=== PATIENT | male | born 1970 | race Caucasian/White ===

== ENCOUNTER 2016-12-28 14:49 | Emergency (ER) | payer MEDICAID | END 2016-12-28 17:40 | disposition home or self-care (01) | LOC: D.ER 14:49 | DX: K08.89 Other specified disorders of teeth and supporting structures (principal); S03.2XXA Dislocation of tooth, initial encounter; X58.XXXA Exposure to other specified factors, initial encounter; Y93.89 Activity, other specified; Y92.89 Other specified places as the place of occurrence of the external cause; R51 Headache; F17.200 Nicotine dependence, unspecified, uncomplicated ==

== ENCOUNTER 2017-01-03 15:57 | Emergency (ER) | payer MEDICAID | END 2017-01-03 18:38 | disposition home or self-care (01) | LOC: D.ER 15:57 | DX: S00.83XA Contusion of other part of head, initial encounter (principal); W22.8XXA Striking against or struck by other objects, initial encounter; K02.9 Dental caries, unspecified ==

== ENCOUNTER 2017-09-17 21:40 | Inpatient (IN) | payer MEDICAID ==
[~2017-09-17] VITALS: Ht 177.8 cm; Wt 77.1 kg
--- NOTE | ~2017-09-17 | HEMODYNAMI ---
PATIENT:ADILIA LUCERO MEDICAL RECORD: [id number] : 66 LOCATION:DVictorinaAZ D.2226 ADMISSION DATE: 09/18/17 Generatedon:09/20/201712:23 Patient name: ADILIA LUCERO Patient #: [id number] SSN: : 1970 Date of study: 09/20/2017 Page: Of Hemodynamic Procedure Report Patient Data Patient Demographics Procedure consent was obtained First Name: ADILIA Gender: Male Last Name: JAZMINE : 1970 Middle Initial: P Age: 47 year(s) Patient #: [id number] Race: Unknown Additional ID: [id number] Contact details Address: [address] [place] [address] State: [place] City: [place] Zip code: [address] Past Medical History Allergies Allergen Reaction Date Comments Reported Penicillins 09/20/2017 Admission Admission Data Admission Date: 09/18/2017 Admission Time: 1:02 Admit Source: Other Room #: D.2226 Lab Results Lab Result Date: 09/20/2017 Lab Result Time: 0:00 Biochemistry Name Units Result Min Max BUN mg/dl 34 --(----)-* 7 18 Creatinine mg/dl 1.5 --(----)-* 0.6 1.3 CBC Name Units Result Min Max Hemoglobin g/dl 14.4 --(*---)-- 13.5 17.5 Procedure Procedure Types Cath Procedure Diagnostic Procedure LHC LHC w/Coronaries Procedure Description Procedure Date Procedure Date: 09/20/2017 Procedure Start Time: 12:09 Procedure End Time: 12:21 Procedure Staff Name Function Dustin Frey MD Performing Physician Babita Padgett RT Monitor Timmy Tang RT Scrub Rivera Banks RN Nurse Procedure Data Cath Procedure Fluoroscopy Diagnostic fluoroscopy Total fluoroscopy Time: 2.6 time: 2.6 min min Diagnostic fluoroscopy Total fluoroscopy dose: 571 dose: 571 mGy mGy Contrast Material Contrast Material Type Amount (ml) Isovue 300 77 Entry Location Entry Primary Successful Side Size Upsize Upsize Entry Closure Succes sful Closure Location (Fr) 1 (Fr) 2 (Fr) Remarks Device Remarks Femoral Right 5 Fr Exoseal artery Estimated blood loss: 5 ml Diagnostic catheters Device Type Used For End Catheter Placement MULTIPACK JL 4.0 5Fr Procedure catheter MULTIPACK 3DRC 5Fr Procedure catheter MULTIPACK Pigtail 5 Fr Procedure catheter Procedure Complications No complications Procedure Medications Medication Administration Route Dosage 0.9% NaCl I.V. 100 ml/hr Oxygen etCO2 Nasal cannula 2 l/min Heparin Flush Bag added to field 2 bags (1000units/500ml NS) Lidocaine 2% added to field 20 Versed I.V. 2 mg Fentanyl I.V. 100 mcg Versed I.V. 1 mg Hemodynamics Rest HGB: 14.4 (g/dl) Heart Rate: 94 (bpm) Pressure Samples Time Site Value (mmHg) Purpose Heart Use Rate(bpm) 12:16 LV 124/11,16 Snapshot 98 12:17 AO 133/81(102) Pullback 98 12:17 LV 139/3,21 Pullback 98 Gradients Valve Time Site 1 Site 2 Mean SEP/DFP Peak To Heart Use (mmHg) (sec/min) Peak Rate (mmHg) (bpm) Aortic 12:17 LV AO 6 98 139/3,21 133/81(102) Calculations Valve P-P Mean Valve Index Valve Source Name Gradient Area Flow (cm2) Aortic 6 6 Snapshots Pre Cath Intra NCS Post Cath Vital Signs Time Heart Resp SPO2 etCO2 NIBP (mmHg) Rhythm Pain Sedation Rate (ipm) (%) (mmHg) Status Level (bpm) 12:03:09 97 34 93 14.9 137/100(118) NSR 0 (11) 10(A) , No pain 12:07:45 97 30 93 15.7 137/105(119) NSR 0 (11) 10(A) , No pain 12:12:20 96 31 92 12.7 133/96(111) NSR 0 (11) 9(A) , No pain 12:16:56 108 17 93 20.2 130/85(105) NSR 0 (11) 9(A) , No pain 12:21:31 97 23 92 32.2 139/87(107) NSR 0 (11) 9(A) , No pain Medications Time Medication Route Dose Verified Delivered Reason Notes Eff ectiveness by by 12:05:37 0.9% NaCl I.V. 100 Rivera Rivera Per ml/hr Darren Banks physician RN RN 12:05:46 Oxygen etCO2 2 Rivera Rivera Per Nasal l/min Darren Banks physician cannula RN RN 12:05:57 Heparin Flush added 2 Rivera Rivera used for Bag to bags Darren Banks procedure (1000units/500ml field RN RN NS) 12:06:17 Lidocaine 2% added 20ml Rivera Rivera for local to vial Lorigan Lorigan anesthetic field RN RN 12:06:30 Versed I.V. 2 mg Rivera Rivera for Lorigan Lorigan sedation RN RN 12:06:39 Fentanyl I.V. 100 Rivera Rivera for mcg Lorigan Lorigan sedation RN RN 12:11:58 Versed I.V. 1 mg Rivera Rivera for Lorigan Lorigan sedation RN labor arbitrator Log Time Note 11:39:12 Informed consent obtained and on chart 11:39:15 Admit Source: Other 11:39:30 Diagnostic Cath status Elective 11:39:32 Rivera Banks RN sent for patient. Start room use. 11:39:33 Time tracking: Regular hours (M-F 7:00 - 5:00) 11:39:39 Plan of Care:Hemodynamics will remain stable., Cardiac rhythm will remain stable., Comfort level will be maintained., Respiratory function will remain adequate., Patient/ family verbilizes understanding of procedure., Procedure tolerated without complication., Recovers from procedure without complications.. 11:41:23 H&P Date Dictated: 09/18/2017 Within 30 days and on chart.. 11:49:56 Patient received from Med II to CCL 1 Alert and oriented. Tansferred to table in Supine position. 11:49:57 Warm blankets applied, and jim hugger turned on for patient comfort. 11:49:58 Correct patient and procedure confirmed by team. 11:50:03 ECG and BP/O2 sat monitors applied to patient. 11:50:04 Pre-procedure instructions explained to patient. 11:50:05 Pre-op teaching completed and patient verbalized understanding. 12:02:23 Vital chart was started 12:02:29 Baseline sample Acquired. 12:02:32 Rhythm: sinus rhythm 12:02:33 Full Disclosure recording started 12:02:36 Family in patients room. 12:02:37 Patient NPO since Midnight. 12:02:46 Patient allergic to Penicillins 12:02:49 Is the patient allergic to Iodine/contrast media? No. 12:02:50 Is patient on blood thinner?Yes 12:02:53 ACC The patient was administered the following blood thiners within the last 24 hours: ACCLovenox 12:02:55 Patient diabetic? No. 12:02:58 Previous problem with sedation/anesthesia? No ? 12:02:58 Snore? Yes 12:03:00 Sleep apnea? No 12:03:01 Deviated septum? No 12:03:02 Opens mouth fully? Yes 12:03:03 Sticks out tongue? Yes 12:03:06 Airway obstruction? No ? 12:03:10 Dentures? No ? 12:03:15 Pre procedure: right dorsailis pedis pulse 2+ Normal; easily identifiable; not easily obliterated 12:03:21 IV patent on arrival in right forearm with 0.9% NaCl at [facility]. 12:03:53 Lab Result : BUN 34 mg/dl 12:03:53 Lab Result : Creatinine 1.5 mg/dl 12:03:53 Lab Result : Hemoglobin 14.4 g/dl 12:04:17 Lab results completed and on chart. 12:04:20 Right groin area was prepped with chlora-prep and draped in sterile fashion 12:04:21 Alarms reviewed by R. N. 12:04:21 Sharps counted by scrub and verified by R.N. 12:04:22 --------ALL STOP TIME OUT------ 12:04:23 Final Timeout: patient, procedure, and site verified with staff and physician. All members of the team are in agreement. 12:04:25 Right groin site verified by team. 12:04:28 Physical assessment completed. ASA score P 2 - A patient with mild systemic disease as per Dustin Frey MD. 12:04:32 Sedation plan: IV Moderate Sedation Medication:Versed, Fentanyl 12:04:48 Use device set Femoral Dx 12:04:50 ACIST Syringe (78637) opened to sterile field. 12:04:51 Bag Decanter (2002S) opened to sterile field. 12:04:52 ACIST Hand Control (67416) opened to sterile field. 12:04:53 ACIST Manifold (15835) opened to sterile field. 12:04:54 Tegaderm 4 x 4 (1626W) opened to sterile field. 12:04:56 Medline Cath Pack ([id number]) opened to sterile field. 12:04:57 DIAGNOSTIC WIRE .035 260cm J wire (652158) opened to sterile field. 12:04:59 DIAGNOSTIC Multipack 5Fr catheter set ([id number]) opened to sterile field. 12:05:37 0.9% NaCl 100 ml/hr I.V. was administered by Rivera Banks RN; Per physician; 12:05:46 Oxygen 2 l/min etCO2 Nasal cannula was administered by Rivera Banks RN; Per physician; 12:05:57 Heparin Flush Bag (1000units/500ml NS) 2 bags added to field was administered by Rivera Banks RN; used for procedure; 12:06:17 Lidocaine 2% 20ml vial added to field was administered by Rivera Banks RN; for local anesthetic; 12:06:30 Versed 2 mg I.V. was administered by Rivera Banks RN; for sedation; 12:06:39 Fentanyl 100 mcg I.V. was administered by Rivera Banks RN; for sedation; 12:07:56 Zero performed for pressure channel P1 12:08:03 Procedure started. 12:09:29 Local anesthetic to right femoral artery with Lidocaine 2% by Dustin Frey MD.INITIAL ACCESS ONLY 12:09:35 SHEATH Prelude 5Fr 0.035 (MFI-4P-03-035) opened to sterile field. 12:09:43 A 5 Fr sheath was inserted into the Right Femoral artery 12:10:18 A MULTIPACK JL 4.0 5Fr catheter was advanced over the wire and used for Procedure. 12:11:08 LCA angiography performed. 12:11:54 Catheter exchanged over wire. 12:11:58 Versed 1 mg I.V. was administered by Rivera Banks RN; for sedation; 12:12:46 A MULTIPACK 3DRC 5Fr catheter was advanced over the wire and used for Procedure. 12:14:06 RCA angiography performed. 12:14:17 Catheter exchanged over wire. 12:15:04 A MULTIPACK Pigtail 5 Fr catheter was advanced over the wire and used for Procedure. 12:15:10 Injector settings: Ml/sec: 10, Volume: 20, 12:15:12 LV gram done using PRASAD 12:16:23 LV hemodynamics recorded. 12:17:16 EF : 15 % 12:17:27 Catheter removed. 12:17:30 EXOSEAL 5Fr (EX500) opened to sterile field. 12:18:28 Sheath removed intact; hemostasis achieved with Exoseal to the Right Femoral artery. 12:19:06 Procedure ended.(Physican Out) 12:19:24 Fluoroscopy time 02.60 minutes. 12:19:28 Fluoroscopy dose: 571 mGy 12:19:28 Flurop Dose total: 571 12:19:36 Contrast amount:Isovue 300 77ml. 12:19:41 Post-op/insertion site Right Femoral artery dressed using a 4 x 4 and Tegaderm. 12:19:44 Post right femoral artery:stable, soft, clean and dry 12:19:47 Post procedure: right dorsailis pedis pulse 2+ Normal; easily identifiable; not easily obliterated. 12:19:50 Post-procedure physical assessment completed. ASA score P 2 - A patient with mild systemic disease as per Dustin Frey MD. 12:19:54 Post procedure rhythm: unchanged. 12:19:56 Estimated blood loss: 5 ml 12:19:58 Post procedure instruction explained to patient.Patient verbalizes understanding. 12:19:58 Patient needs reinforcement of post procedure teaching. 12:20:55 Procedure and supply charges have been captured, reviewed, submitted and are correct. 12:20:57 Procedure Complication : No complications 12:20:59 Vital chart was stopped 12:20:59 See physician's report for complete and final results. 12:21:01 Report given to Med/Surg. 12:21:09 Patient transfered to Med/Surg with Bed. 12:21:11 Procedure ended. 12:21:11 Full Disclosure recording stopped 12:21:17 End room use (Document Last) Device Usage Item Name Manufacture Quantity Catalog Number Hospital Part Current M inimal Lot# / Charge Number Stock Stock Serial# Code ACIST Syringe Acist 1 81928 403965 [id number] [id number] 2 0 (00885) CastTV Bag Decanter Microtek 1 2001 420352 53883 465101 5 (2002S) Medical Inc. ACIST Hand Acist 1 30862 119617 502417 289723 5 Control (45650) Medical Systems Inc ACIST Manifold Acist 1 82250 386421 898772 524549 5 (71034) Medical Systems Inc Tegaderm 4 x 4 3M 1 1626W 436451 131032 600563 5 (1626W) Medline Cath Cardinal 1 [id number] 837230 19828 447346 5 NEBOTRADE Health ([id number]) DIAGNOSTIC WIRE [facility] 1 362049 916702 283765 236766 3 0 .035 260cm J wire (899372) DIAGNOSTIC Cardinal 1 [id number] 286063 62149 763850 3 0 Multipack 5Fr Health catheter set ([id number]) SHEATH Prelude Merit 1 [id number] 720949 671169 781816 5 5Fr 0.035 Medical (GML-0Y-28-035) MULTIPACK JL Cardinal 1 [id number] 5 4.0 5Fr Health catheter MULTIPACK 3DRC Cardinal 1 [id number] 5 5Fr catheter Health MULTIPACK Cardinal 1 [id number] 5 Pigtail 5 Fr Health catheter EXOSEAL 5Fr Cardinal 1 EX500 309806 451056 042738 1 0 (EX500) Health Signature Audit [place] Stage Time Signature Unsigned Intra-Procedure 09/20/2017 Babita Padgett 12:23:39 PM RT(R) Signatures Monitor : Babita Padgett Signature : RT Date : Time : [facility] [address] [place] [address]
[2017-09-17 22:21] LABS: BASOPHILS 0.1 % (0-2); EOSINOPHILS 2.1 % (0-7); HEMATOCRIT 42.5 % (42.0-54.0); HEMOGLOBIN 14.7 g/dL (13.5-17.5); IMMATURE GRANULOCYTES 0.2 % (0-5); LYMPHOCYTES 21.9 % (15-50); MCH 32.7 pg (26.0-34.0); MCHC 34.6 g/dL (31.0-37.0); MCV 94.4 fL (80.0-100.0); MEAN PLATELET VOLUME 9.4 fL (7.4-10.4); NEUTROPHILS 67.7 % (40-80); RDW 13.3 % (11.5-14.5); WBC 8.5 10x3/uL (4.8-10.8)
[2017-09-17 22:22] LABS: PLATELET COUNT 270 10x3/uL (130-400)
[2017-09-17 22:30] LABS: PROTIME 12.8 SECONDS (11.6-15.0)
[2017-09-17 22:32] LABS: APTT 27.9 SECONDS (22.8-39.4)
[2017-09-17 22:33] LABS: D-DIMER-QUANTITATIVE 1.26 ug/mLFEU (0.20-0.54)
[2017-09-17 22:36] LABS: ALBUMIN 3.1 g/dL (3.4-5.0); ALKALINE PHOSPHATASE 138 U/L (46-116); ALT (SGPT) 50 U/L (10-68); BILIRUBIN - TOTAL 0.64 mg/dL (0.2-1.3); CALC OSMOLALITY 277 mosm/kg (275-300); CALCIUM 8.7 mg/dL (8.5-10.1); CARBON DIOXIDE 27.5 mmol/L (21.0-32.0); CHLORIDE - SERUM 102 mmol/L (98-107); CREATININE - SERUM 1.5 mg/dL (0.6-1.3); GLUCOSE 104 mg/dL (74-106); POTASSIUM - SERUM 3.9 mmol/L (3.5-5.1); PROTEIN - SERUM 6.6 g/dL (6.4-8.2); SODIUM 136 mmol/L (136-145); UREA NITROGEN 29 mg/dL (7-18); eGFR NON AFRICAN AMERICAN 53 mL/min (90-120)
[2017-09-17 22:56] LABS: CREATINE KINASE 270 UL (21-232)
[2017-09-17 22:58] LABS: TROPONIN-I 0.071 ng/mL (0.000-0.060)
[2017-09-17 22:59] LABS: CKMB 5.3 U/L (0.0-3.6)
[2017-09-18 01:56] LABS: CREATINE KINASE 257 UL (21-232)
[2017-09-18 01:58] LABS: TROPONIN-I 0.073 ng/mL (0.000-0.060)
[2017-09-18 08:28] LABS: CKMB 4.8 U/L (0.0-3.6); CREATINE KINASE 213 UL (21-232); TROPONIN-I 0.042 ng/mL (0.000-0.060)
[2017-09-18 13:22] VITALS: BP 124/90; BMI 23.7
[2017-09-18] MEDS ORDERED: ACETAMINOPHEN500 M1 PO (13:22)
[2017-09-18 14:05] LABS: CHOL - HDL RATIO 3.1 ratio (2.3-4.9); LDL-HDL RATIO 1.9 ratio (1.5-3.5)
[2017-09-18 14:10] LABS: CKMB 5.5 U/L (0.0-3.6); CREATINE KINASE 210 UL (21-232); TROPONIN-I 0.057 ng/mL (0.000-0.060)
[2017-09-19 04:00] VITALS: BP 129/87
[2017-09-19 06:42] LABS: BASOPHILS 0.2 % (0-2); HEMOGLOBIN 14.4 g/dL (13.5-17.5); IMMATURE GRANULOCYTES 0.2 % (0-5); LYMPHOCYTES 26.1 % (15-50); MCHC 34.3 g/dL (31.0-37.0); MCV 96.1 fL (80.0-100.0); MEAN PLATELET VOLUME 9.9 fL (7.4-10.4); MONOCYTES 10.1 % (2-11); NEUTROPHILS 62.4 % (40-80); PLATELET COUNT 275 10x3/uL (130-400); RBC 4.37 10x6/uL (4.20-6.10); RDW 14.2 % (11.5-14.5); WBC 9.7 10x3/uL (4.8-10.8)
[2017-09-19 07:21] LABS: ALBUMIN 3.1 g/dL (3.4-5.0); ANION GAP 16.6 mmol/L (8-16); BILIRUBIN - TOTAL 0.6 mg/dL (0.2-1.3); CALCIUM 8.5 mg/dL (8.5-10.1); CARBON DIOXIDE 22.6 mmol/L (21.0-32.0); CREATININE - SERUM 1.5 mg/dL (0.6-1.3); POTASSIUM - SERUM 4.2 mmol/L (3.5-5.1); PROTEIN - SERUM 6.4 g/dL (6.4-8.2)
[2017-09-19 09:30] VITALS: BP 130/84
[2017-09-19 12:17] VITALS: Ht 177.8 cm; Wt 77.1 kg
[2017-09-19 12:25] VITALS: BP 129/93
[2017-09-19 17:10] VITALS: BP 135/86
[2017-09-19 20:00] VITALS: BP 123/68
[2017-09-20] VITALS: BP 130/87
[2017-09-20 06:20] VITALS: BP 139/89
[2017-09-20 07:56] VITALS: BP 140/59
[2017-09-20 11:54] VITALS: BP 136/95
[2017-09-20] MEDS ORDERED: ALBUTEROL2.5 MG/3 M INH (12:35)
[2017-09-20] MEDS ORDERED: NICODERM C1 PATCH .1 TRANSDERM (12:35)
[2017-09-20] MEDS ORDERED: PROTONIX40 MG PO (12:37)
[2017-09-20] MEDS ORDERED: BUMEX 1 MG TAB1 MG PO (12:37)
[2017-09-20 16:09] VITALS: BP 132/82
== END 2017-09-20 20:14 | disposition home or self-care (01) | DRG 286 ==
LOC: D.ER 21:40 → D.MS 09-18 01:02 → D.EDHOLD 09-18 01:02 → D.MS 09-18 20:06
PROVIDERS: Family Medicine; Internal Medicine Nephrology
PROC: B2151ZZ Fluoroscopy of Left Heart using Low Osmolar Contrast (ICD-10-PCS; principal; 2017-09-18)
PROC: 4A023N7 Measurement of Cardiac Sampling and Pressure, Left Heart, Percutaneous Approach (ICD-10-PCS; 2017-09-18)
DX: I42.9 Cardiomyopathy, unspecified (principal); I26.99 Other pulmonary embolism without acute cor pulmonale; I50.23 Acute on chronic systolic (congestive) heart failure; J96.01 Acute respiratory failure with hypoxia; N17.9 Acute kidney failure, unspecified; F17.203 Nicotine dependence unspecified, with withdrawal; I24.8 Other forms of acute ischemic heart disease; F19.10 Other psychoactive substance abuse, uncomplicated

== ENCOUNTER 2018-02-27 11:18 | Outpatient (CLI) | payer MEDICAID ==
[~2018-02-27] VITALS: Ht 175.3 cm; Wt 70.5 kg
--- NOTE | ~2018-02-27 | OP ---
PATIENT NAME: ADILIA LUCERO MEDICAL RECORD: [id number] :66 LOCATION:D.CAT ADMISSION DATE: SURGEON: ANITA SHERMAN MD DATE OF OPERATION: 02/27/2018 TRANSESOPHAGEAL NOTE After general sedation via TIVA via anesthesia, transesophageal Omniplane probe placed in the distal esophagus and proximal stomach without difficulty. FINDINGS: No LVH. LV internal dimensions grossly appear to be dilated. LV appears to be globally hypokinetic, however, more marked anterior and septal hypokinesis. Overall LV function reduced at 30, estimated EF 35%. Aortic valve is tricuspid with inadequate coaptation. In the short axis view, there is an eccentric jet across the mitral valve, moderate to severe. Left atrium grossly appears dilated. Left atrial appendage is without thrombus. Mitral valve appears normal with mild MR. Right-sided chambers are normal. Mild TR. At the end of procedure, transesophageal probe was turned posteriorly, showed minimal atherosclerotic debris in the descending aorta. IMPRESSION: Aortic insufficiency, improved LV function from previous transthoracic echo, focal wall motion abnormality, suspicious for underlying coronary artery disease. We will consider angiography at some point. The above was discussed with Dr. Frey, his primary sprue knocker. TRANSINT:[id number] Voice Confirmation ID: [id number] DOCUMENT ID: [id number] ANITA SHERMAN MD at 1135 CC: [id number] DICTATION DATE: 02/27/18 1336 JOINERS SUPERVISOR: 02/27/18 1543 DEP CLI 02/27/18 [place] [id number] [place] [id number]
--- NOTE | ~2018-02-27 | HEMODYNAMI ---
PATIENT:ADILIA LUCERO MEDICAL RECORD: [id number] : 66 LOCATION:DYONG ADMISSION DATE: 02/27/18 Generatedon:02/27/201813:38 Patient name: ADILIA LUCERO Patient #: [id number] SSN: : 1970 Date of study: 02/27/2018 Page: Of Hemodynamic Procedure Report Patient Data Patient Demographics Procedure consent was obtained First Name: ADILIA Gender: Male Last Name: JAZMINE : 1970 Middle Initial: P Age: 47 year(s) Patient #: [id number] Race: Unknown Additional ID: [id number] Contact details Address: [address] [place] [address] State: [place] City: [place] Zip code: [address] Past Medical History Allergies Allergen Reaction Date Comments Reported Penicillins 09/20/2017 Other allergy 02/27/2018 PCN Admission Admission Data Admission Date: 02/27/2018 Admission Time: 11:18 Admit Source: Other Lab Results Lab Result Date: 02/27/2018 Lab Result Time: 12:00 Biochemistry Name Units Result Min Max BUN mg/dl 13 --(--*-)-- 7 18 Creatinine mg/dl 1 --(--*-)-- 0.6 1.3 CBC Name Units Result Min Max Hematocrit % 41.6 -*(----)-- 42 54 Hemoglobin g/dl 14.5 --(*---)-- 13.5 17.5 Procedure Procedure Types Cath Procedure Diagnostic Procedure PEDRO LUIS Procedure Description Procedure Date Procedure Date: 02/27/2018 Procedure Start Time: 13:37 Procedure End Time: 13:37 Procedure Staff Name Function Darryl Easton MD Performing Physician Timmy Tang RT Monitor Marcelo Davey RT Personal Banking Officer Rivera Banks RN Nurse Fausto Joseph MD Additional personnel Nik Jones Briquette Machine Operator Procedure Data Cath Procedure Fluoroscopy Diagnostic fluoroscopy Total fluoroscopy Time: 0 time: 0 min min Diagnostic fluoroscopy Total fluoroscopy dose: 0 dose: 0 mGy mGy Contrast Material Contrast Material Type Amount (ml) Isovue 300 0 Estimated blood loss: 0 ml Procedure Complications No complications Procedure Medications Medication Administration Route Dosage 0.9% NaCl I.V. 100 ml/hr Oxygen etCO2 Nasal cannula 4 l/min unlisted medication added to field 15 ml Refer to Anesthesia Notes for Sedation Medications unlisted medication 15 ml Hemodynamics Rest HGB: 14.5 (g/dl) Heart Rate: 57 (bpm) Snapshots Pre Cath Intra NCS Post Cath Vital Signs Time Heart Resp SPO2 etCO2 NIBP (mmHg) Rhythm Pain Sedation Rate (ipm) (%) (mmHg) Status Level (bpm) 12:49:29 55 18 100 0 128/67(91) NSR 0 (11) 10(A) , No pain 12:53:40 60 21 100 0 125/73(102) NSR 0 (11) 10(A) , No pain 12:57:55 57 21 100 0 126/67(92) NSR 0 (11) 10(A) , No pain 13:02:04 67 23 100 0 128/74(99) NSR 0 (11) 10(A) , No pain 13:06:16 64 21 100 27.7 130/75(99) NSR 0 (11) 10(A) , No pain 13:10:26 55 18 100 29.2 131/80(108) NSR 0 (11) 10(A) , No pain 13:15:09 65 16 100 26.2 111/59(92) NSR 0 (11) 10(A) , No pain 13:19:17 83 19 100 33.8 103/70(88) NSR 0 (11) 9(A) , No pain 13:23:27 71 19 99 22.5 110/61(80) NSR 0 (11) 8(A) , No pain 13:27:32 94 24 100 0 124/80(100) NSR 0 (11) 8(A) , No pain 13:31:46 83 30 93 119/65(96) NSR 0 (11) 9(A) , No pain 13:36:00 70 21 100 111/59(88) NSR 0 (11) 9(A) , No pain Medications Time Medication Route Dose Verified Delivered Reason Notes Effectiv eness by by 12:52:18 0.9% NaCl I.V. 100 Rivera Rivera Per ml/hr Darren Banks physician RN RN 12:52:31 Oxygen etCO2 4 Rivera Rivera Per Nasal l/min Darren Banks physician cannula RN RN 13:04:26 viscous added 15 ml Rivera Rivera for local lidocaine to Lorigan Lorigan anesthetic field RN RN 13:18:23 Refer to Rivera Rivera for Anesthesia Darren Banks sedation Notes for RN RN Sedation Medications 13:21:56 viscous p.o. 15ml Rivera Rivera for local lidocaine Darren Banks anesthetic RN retail sales associate seasonal Log Time Note 12:15:01 Rivera Banks RN sent for patient. Start room use. 12:38:24 Informed consent obtained and on chart 12:38:27 Admit Source: Other 12:38:56 Time tracking: Regular hours (M-F 7:00 - 5:00) 12:39:01 Plan of Care:Hemodynamics will remain stable., Cardiac rhythm will remain stable., Comfort level will be maintained., Respiratory function will remain adequate., Patient/ family verbilizes understanding of procedure., Procedure tolerated without complication., Recovers from procedure without complications.. 12:41:47 Lab Result : Creatinine 1 mg/dl 12:41:47 Lab Result : BUN 13 mg/dl 12:41:47 Lab Result : Hemoglobin 14.5 g/dl 12:41:47 Lab Result : Hematocrit 41.6 % 12:41:49 Lab results completed and on chart. 12:43:02 H&P Date Dictated: 02/21/2018 Within 30 days and on chart., H&P Addendum completed by physician on day of procedure. (MUST COMPLETE FOR ALL OUTPATIENTS). 12:43:12 Patient received from Pre/Post Procedure Room to CCL 3 Alert and oriented. Tansferred to table in Supine position. 12:43:13 Warm blankets applied, and jim hugger turned on for patient comfort. 12:43:13 Correct patient and procedure confirmed by team. 12:43:14 ECG and BP/O2 sat monitors applied to patient. 12:43:14 Pre-procedure instructions explained to patient. 12:43:15 Pre-op teaching completed and patient verbalized understanding. 12:43:16 Family in waiting room. 12:43:17 Patient NPO since Midnight. 12:43:29 Patient allergic to Other allergyPCN 12:45:02 Fausto Joseph MD present and monitoring patient for TIVA. 12:48:22 Vital chart was started 12:48:23 Baseline sample Acquired. 12:48:38 Rhythm: sinus rhythm 12:48:45 Full Disclosure recording started 12:49:18 Is the patient allergic to Iodine/contrast media? No. 12:49:19 Is patient on blood thinner?No 12:49:20 Patient diabetic? No. 12:49:46 Previous problem with sedation/anesthesia? No ? 12:49:48 Snore? Yes 12:49:49 Sleep apnea? No 12:49:50 Deviated septum? No 12:49:51 Opens mouth fully? Yes 12:49:55 Sticks out tongue? Yes 12:49:57 Airway obstruction? No ? 12:50:00 Dentures? No ? 12:50:03 Patient pain scale 0/10 ?. 12:50:16 IV patent on arrival in left antecubital with 0.9% NaCl at [facility]. 12:52:18 0.9% NaCl 100 ml/hr I.V. was administered by Rivera Banks RN; Per physician; 12:52:31 Oxygen 4 l/min etCO2 Nasal cannula was administered by Rivera Banks RN; Per physician; 13:04:26 viscous lidocaine 15 ml added to field was administered by Rivera Banks RN; for local anesthetic; 13:16:23 Physician arrived 13:16:23 --------ALL STOP TIME OUT------ 13:16:23 Final Timeout: patient, procedure, and site verified with staff and physician. All members of the team are in agreement. 13:16:47 Physical assessment completed. ASA score P 3 - A patient with severe systemic disease as per Darryl Easton MD. 13:16:50 Sedation plan: TIVA Medication:Propofol 13:18:23 Refer to Anesthesia Notes for Sedation Medications was administered by Rivera Banks RN; for sedation; 13:20:18 Nik Doddridge Want Ad Supervisor present for PEDRO LUIS. 13:21:56 viscous lidocaine 15ml p.o. was administered by Rivera Banks RN; for local anesthetic; 13:23:16 Procedure started. 13:23:17 PEDRO LUIS started. 13:30:14 PEDRO LUIS completed. 13:30:33 Procedure ended.(Physican Out) 13:30:37 Fluoroscopy time 00.00 minutes. 13:30:38 Flurop Dose total: 0 13:30:38 Fluoroscopy dose: 0 mGy 13:30:40 Contrast amount:Isovue 300 0ml. 13:30:43 Post Procedure Pulses reassessed and unchanged 13:30:47 Post-procedure physical assessment completed. ASA score P 3 - A patient with severe systemic disease as per Darryl Easton MD. 13:30:58 Post procedure rhythm: sinus rhythm 13:31:10 Estimated blood loss: 0 ml 13:31:22 Post procedure instruction explained to patient.Patient verbalizes understanding. 13:31:23 Patient needs reinforcement of post procedure teaching. 13:31:41 Procedure and supply charges have been captured, reviewed, submitted and are correct. 13:31:43 Procedure Complication : No complications 13:36:45 Vital chart was stopped 13:36:46 See physician's report for complete and final results. 13:36:47 Report given to Pre/Post Procedure Room. 13:36:49 Patient transfered to Pre/Post Procedure Room with Stretcher. 13:37:03 End room use (Document Last) 13:37:45 Procedure ended. 13:37:45 Full Disclosure recording stopped Signature Audit [place] Stage Time Signature Unsigned Intra-Procedure 02/27/2018 Timmy Tang 1:38:29 PM RT(R) Signatures Monitor : Timmy Tang RT Signature : Date : Time : [address] [id number]
[~2018-02-27 11:18] MED LIST: ACETAMINOPHEN500 M1 PO; ALBUTEROL2.5 MG/3 M INH; BUMEX 1 MG TAB1 MG PO; NICODERM C1 PATCH .1 TRANSDERM; PROTONIX40 MG PO
[2018-02-27] MEDS ORDERED: BAYER CHEWABLE81 MG PO (11:51)
[2018-02-27] MEDS ORDERED: LISINOPRIL2.5 MG PO (11:51)
[2018-02-27] MEDS ORDERED: COREG 3.1253.125 MG PO (11:51)
[2018-02-27 11:58] VITALS: BP 127/71; Ht 175.3 cm; Wt 70.5 kg
[2018-02-27 12:08] LABS: BASOPHILS 0.3 % (0-2); EOSINOPHILS 3.5 % (0-7); HEMATOCRIT 41.6 % (42.0-54.0); HEMOGLOBIN 14.5 g/dL (13.5-17.5); IMMATURE GRANULOCYTES 0.3 % (0-5); LYMPHOCYTES 21.7 % (15-50); MCH 34.7 pg (26.0-34.0); MCHC 34.9 g/dL (31.0-37.0); MCV 99.5 fL (80.0-100.0); MEAN PLATELET VOLUME 9.1 fL (7.4-10.4); MONOCYTES 7.9 % (2-11); NEUTROPHILS 66.3 % (40-80); RBC 4.18 10x6/uL (4.20-6.10); RDW 12.9 % (11.5-14.5); WBC 6.8 10x3/uL (4.8-10.8)
[2018-02-27 12:11] LABS: PLATELET COUNT 199 10x3/uL (130-400)
[2018-02-27 12:18] LABS: CALC OSMOLALITY 271 mosm/kg (275-300); CALCIUM 8.5 mg/dL (8.5-10.1); CARBON DIOXIDE 29.2 mmol/L (21.0-32.0); CHLORIDE - SERUM 104 mmol/L (98-107); GLUCOSE 94 mg/dL (74-106); INR 0.94 (0.85-1.17); POTASSIUM - SERUM 4.3 mmol/L (3.5-5.1); PROTIME 12.2 SECONDS (11.6-15.0); SODIUM 136 mmol/L (136-145); UREA NITROGEN 13 mg/dL (7-18); eGFR NON AFRICAN AMERICAN 84 mL/min (90-120)
== END 2018-02-27 15:05 | disposition home or self-care (01) ==
LOC: D.CATH 11:18
PROVIDERS: Internal Medicine Cardiovascular Disease
DX: I35.1 Nonrheumatic aortic (valve) insufficiency (principal); Z01.812 Encounter for preprocedural laboratory examination

== ENCOUNTER 2018-03-25 11:52 | Outpatient (CLI) | payer MEDICAID ==
[~2018-03-25] VITALS: Ht 177.8 cm; Wt 70.5 kg
--- NOTE | ~2018-03-25 | HEMODYNAMI ---
PATIENT:ADILIA LUCERO MEDICAL RECORD: [id number] : 66 LOCATION:[facility] ADMISSION DATE: 03/25/18 Generatedon:03/25/201814:20 Patient name: ADILIA LUCERO Patient #: [id number] SSN: : 1970 Date of study: 03/25/2018 Page: Of Hemodynamic Procedure Report Patient Data Patient Demographics Procedure consent was obtained First Name: ADILIA Gender: Male Last Name: JAZMINE : 1970 Middle Initial: P Age: 47 year(s) Patient #: [id number] Race: Unknown Additional ID: [id number] Contact details [address]: [address] [place] [address] State: [place] City: [place] Zip code: [address] Past Medical History Allergies Allergen Reaction Date Comments Reported Penicillins 09/20/2017 Other allergy 02/27/2018 PCN Penicillins 03/25/2018 Admission Admission Data Admission Date: 03/25/2018 Admission Time: 11:52 Height (in.): 70 BSA: 1.88 (m2) Height (cm.): 177.8 BMI: 22.53 (kg/m2) Weight (lbs.): 157 Weight (kg.): 71.21 Lab Results Lab Result Date: 03/25/2018 Lab Result Time: 0:00 Biochemistry Name Units Result Min Max BUN mg/dl 19 --(----)*- 7 18 Creatinine mg/dl 1 --(--*-)-- 0.6 1.3 CBC Name Units Result Min Max Hemoglobin g/dl 14.4 --(*---)-- 13.5 17.5 Procedure Procedure Types Cath Procedure Diagnostic Procedure [facility] w/Coronaries Procedure Description Procedure Date Procedure Date: 03/25/2018 Procedure Start Time: 14:06 Procedure End Time: 14:17 Procedure Staff Name Function Dustin Frey MD Performing Physician Babita Padgett RT Monitor Rossy Daniels RN Nurse Liliana Paige RT Scrub Procedure Data Cath Procedure Fluoroscopy Diagnostic fluoroscopy Total fluoroscopy Time: 1.8 time: 1.8 min min Diagnostic fluoroscopy Total fluoroscopy dose: 403 dose: 403 mGy mGy Contrast Material Contrast Material Type Amount (ml) Isovue 300 69 Entry Location Entry Primary Successful Side Size Upsize Upsize Entry Closure Succes sful Closure Location (Fr) 1 (Fr) 2 (Fr) Remarks Device Remarks Femoral Right 5 Fr Exoseal artery Estimated blood loss: 5 ml Diagnostic catheters Device Type Used For End Catheter Placement MULTIPACK JL 4.0 5Fr Procedure catheter MULTIPACK 3DRC 5Fr Procedure catheter MULTIPACK Pigtail 5 Fr Procedure catheter Procedure Complications No complications Procedure Medications Medication Administration Route Dosage 0.9% NaCl I.V. 100 ml/hr Oxygen etCO2 Nasal cannula 2 l/min Lidocaine 2% added to field 20 Heparin Flush Bag added to field 2 bags (1000units/500ml NS) Versed I.V. 2 mg Fentanyl I.V. 50 mcg Versed I.V. 2 mg Fentanyl I.V. 50 mcg Hemodynamics Rest BSA: 1.88 (m2) HGB: 14.4 (g/dl) O2 Consumption: Estimated: 218.18 (ml/min) O2 Co nsumption indexed: Estimated:116.05 (ml/min/m) Heart Rate: 60 (bpm) Pressure Samples Time Site Value (mmHg) Purpose Heart Use Rate(bpm) 14:12 LV 95/5,7 Snapshot 87 14:13 AO 123/66(90) Pullback 80 14:13 LV 125/1,15 Pullback 80 Gradients Valve Time Site 1 Site 2 Mean SEP/DFP Peak To Heart Use (mmHg) (sec/min) Peak Rate (mmHg) (bpm) Aortic 14:13 LV AO 13 10 2 80 125/1,15 123/66(90) Calculations Valve P-P Mean Valve Index Valve Source Name Gradient Area Flow (cm2) Aortic 2 13 2 13 Snapshots Pre Cath Intra NCS Post Cath Vital Signs Time Heart Resp SPO2 etCO2 NIBP Rhythm Pain Sedation Rate (ipm) (%) (mmHg) (mmHg) Status Level (bpm) 13:49:51 59 16 99 28.5 118/63(82) NSR 0 (11) 10(A) , No pain 13:54:50 57 12 100 34.6 121/59(82) NSR 0 (11) 10(A) , No pain 13:59:02 75 16 99 30 115/71(84) NSR 0 (11) 10(A) , No pain 14:03:14 73 16 98 26 114/64(82) NSR 0 (11) 10(A) , No pain 14:07:30 72 14 99 26.3 117/63(76) NSR 0 (11) 10(A) , No pain 14:11:42 79 17 98 33.1 112/69(89) NSR 0 (11) 10(A) , No pain 14:15:54 78 16 98 39.8 110/65(84) NSR 0 (11) 10(A) , No pain Medications Time Medication Route Dose Verified Delivered Reason Notes Eff ectiveness by by 13:51:47 0.9% NaCl I.V. 100 Dustin Rossy used for ml/hr Tk Daniels enrolled agent 13:51:54 Oxygen etCO2 2 Dustin Rossy used for Nasal l/min Tk Daniels procedure cannula RN 13:52:01 Lidocaine 2% added 20ml Dustin Rossy for local to vial Tk Daniels anesthetic field RN 13:52:08 Heparin Flush added 2 Dustin Rossy used for Bag to bags Tk Daniels procedure (1000units/500ml field RN NS) 14:00:41 Versed I.V. 2 mg Dustin Rossy for Tk Daniels sedation RN 14:00:48 Fentanyl I.V. 50 Dustin Rossy for mcg Tk Daniels sedation RN 14:08:04 Versed I.V. 2 mg Dustin Rsosy for Tk Daniels sedation RN 14:08:09 Fentanyl I.V. 50 Dustin Rossy for mcg Tk Daniels sedation lawyer criminal Log Time Note 13:38:39 Time tracking: Regular hours (M-F 7:00 - 5:00) 13:38:43 Plan of Care:Hemodynamics will remain stable., Cardiac rhythm will remain stable., Comfort level will be maintained., Respiratory function will remain adequate., Patient/ family verbilizes understanding of procedure., Procedure tolerated without complication., Recovers from procedure without complications.. 13:38:45 Rossy Daniels RN sent for patient. Start room use. 13:42:04 H&P Date Dictated: 03/14/2018 Within 30 days and on chart., H&P Addendum completed by physician on day of procedure. (MUST COMPLETE FOR ALL OUTPATIENTS). 13:42:13 Patient allergic to Penicillins 13:43:33 Patient received from Pre/Post Procedure Room to CCL 1 Alert and oriented. Tansferred to table in Supine position. 13:43:34 Warm blankets applied, and jim hugger turned on for patient comfort. 13:43:35 Correct patient and procedure confirmed by team. 13:43:36 Signed procedure consent form obtained from patient. 13:43:37 ECG and BP/O2 sat monitors applied to patient. 13:48:39 Vital chart was started 13:48:41 Full Disclosure recording started 13:51:37 Baseline sample Acquired. 13:51:42 Rhythm: sinus bradycardia 13:51:45 Pre-procedure instructions explained to patient. 13:51:46 Pre-op teaching completed and patient verbalized understanding. 13:51:47 0.9% NaCl 100 ml/hr I.V. was administered by Rossy Daniels RN; used for procedure; 13:51:54 Oxygen 2 l/min etCO2 Nasal cannula was administered by Rossy Daniels RN; used for procedure; 13:52:01 Lidocaine 2% 20ml vial added to field was administered by Rossy Daniels RN; for local anesthetic; 13:52:08 Heparin Flush Bag (1000units/500ml NS) 2 bags added to field was administered by Rossy Daniels RN; used for procedure; 13:56:07 Family in patients room. 13:56:08 Patient NPO since Midnight. 13:56:11 Is the patient allergic to Iodine/contrast media? No. 13:56:12 Is patient on blood thinner?No 13:56:15 Patient diabetic? No. 13:56:20 Previous problem with sedation/anesthesia? No ? 13:56:21 Snore? Yes 13:56:22 Sleep apnea? No 13:56:23 Deviated septum? No 13:56:24 Opens mouth fully? Yes 13:56:25 Sticks out tongue? Yes 13:56:26 Airway obstruction? No ? 13:56:29 Dentures? No ? 13:56:32 Pre procedure: right dorsailis pedis pulse 2+ Normal; easily identifiable; not easily obliterated 13:56:36 Patient pain scale 0/10 ?. 13:56:41 IV patent on arrival in left hand with 0.9% NaCl at [facility]. 13:57:54 Lab Result : BUN 19 mg/dl 13:57:54 Lab Result : Hemoglobin 14.4 g/dl 13:57:54 Lab Result : Creatinine 1 mg/dl 13:57:57 Lab results completed and on chart. 13:58:01 Right groin area was prepped with chlora-prep and draped in sterile fashion 13:58:02 Alarms reviewed by R. N. 13:58:03 Sharps counted by scrub and verified by R.N. 13:59:53 --------ALL STOP TIME OUT------ 13:59:53 Final Timeout: patient, procedure, and site verified with staff and physician. All members of the team are in agreement. 14:00:01 Right groin site verified by team. 14:00:04 Physical assessment completed. ASA score P 2 - A patient with mild systemic disease as per Dustin Frey MD. 14:00:08 Sedation plan: IV Moderate Sedation Medication:Versed, Fentanyl 14:00:13 Use device set Femoral Dx 14:00:14 ACIST Syringe (32572) opened to sterile field. 14:00:15 Bag Decanter (2002S) opened to sterile field. 14:00:18 ACIST Hand Control (41130) opened to sterile field. 14:00:18 ACIST Manifold (81486) opened to sterile field. 14:00:19 Tegaderm 4 x 4 (1626W) opened to sterile field. 14:00:21 Medline Cath Pack ([id number]) opened to sterile field. 14:00:21 DIAGNOSTIC WIRE .035 260cm J wire (571683) opened to sterile field. 14:00:22 DIAGNOSTIC Multipack 5Fr catheter set (IR2245) opened to sterile field. 14:00:23 SHEATH Prelude 5Fr 0.035 (BSL-1T-61-035) opened to sterile field. 14:00:41 Versed 2 mg I.V. was administered by Rossy Daniels RN; for sedation; 14:00:48 Fentanyl 50 mcg I.V. was administered by Rossy Daniels RN; for sedation; 14:01:40 Patient Height : 70 inches 14:01:44 Patient Weight : 157 lbs 14:05:29 Zero performed for pressure channel P1 14:05:51 Procedure started. 14:05:53 Zero performed for pressure channel P1 14:06:02 Local anesthetic to right femoral artery with Lidocaine 2% by Dustin Frey MD.INITIAL ACCESS ONLY 14:07:01 A 5 Fr sheath was inserted into the Right Femoral artery 14:07:25 A MULTIPACK JL 4.0 5Fr catheter was advanced over the wire and used for Procedure. 14:08:04 Versed 2 mg I.V. was administered by Rossy Daniels RN; for sedation; 14:08:09 Fentanyl 50 mcg I.V. was administered by Rossy Daniels RN; for sedation; 14:08:36 LCA angiography performed. 14:08:52 Catheter exchanged over wire. 14:09:23 A MULTIPACK 3DRC 5Fr catheter was advanced over the wire and used for Procedure. 14:10:38 RCA angiography performed. 14:10:53 Catheter exchanged over wire. 14:11:22 A MULTIPACK Pigtail 5 Fr catheter was advanced over the wire and used for Procedure. 14:12:06 LV gram done using PRASAD 14:12:12 Injector settings: Ml/sec: 10, Volume: 20, 14:12:44 LV hemodynamics recorded. 14:13:01 EF : 15 % 14:13:21 Catheter removed. 14:13:23 EXOSEAL 5Fr (EX500) opened to sterile field. 14:14:12 Sheath removed intact; hemostasis achieved with Exoseal to the Right Femoral artery. 14:14:51 Procedure ended.(Physican Out) 14:15:22 Fluoroscopy time 01.80 minutes. 14:15:26 Fluoroscopy dose: 403 mGy 14:15:26 Flurop Dose total: 403 14:15:31 Contrast amount:Isovue 300 69ml. 14:15:32 Sharps counted by scrub and verified by R.N. 14:16:11 Post-op/insertion site Right Femoral artery dressed using a 4 x 4 and Tegaderm. 14:16:14 Post right femoral artery:stable, soft, clean and dry 14:16:25 Post-procedure physical assessment completed. ASA score P 2 - A patient with mild systemic disease as per Dustin Frey MD. 14:16:29 Post procedure rhythm: sinus rhythm 14:16:32 Estimated blood loss: 5 ml 14:16:33 Post procedure instruction explained to patient.Patient verbalizes understanding. 14:16:33 Patient needs reinforcement of post procedure teaching. 14:17:09 Procedure and supply charges have been captured, reviewed, submitted and are correct. 14:17:11 Procedure Complication : No complications 14:17:12 Vital chart was stopped 14:17:13 See physician's report for complete and final results. 14:17:14 Report given to Pre/Post Procedure Room. 14:17:17 Patient transfered to Pre/Post Procedure Room with Bed. 14:17:19 Procedure ended. 14:17:19 Full Disclosure recording stopped 14:17:24 End room use (Document Last) Device Usage Item Name Manufacture Quantity Catalog Number Hospital Part Current M inimal Lot# / Charge Number Stock Stock Serial# Code ACIST Syringe Acist 1 85118 816412 171211 068813 2 0 (96046) Medical Systems Symcat Bag Decanter Microtek 1 2001S 129661 35861 905670 5 (2001S) Medical Inc. ACIST Hand Acist 1 94642 255260 430434 045209 5 Control (27391) Medical Systems Inc ACIST Manifold Acist 1 80159 918373 317605 844120 5 (01268) Medical Systems Inc Tegaderm 4 x 4 3M 1 1626W 475667 147523 884902 5 (1626W) Medline Cath Medline 1 [id number] 691205 05147 452628 5 Pack ([id number]) DIAGNOSTIC WIRE [facility] 1 169408 888773 032409 052918 3 0 .035 260cm J wire (530413) DIAGNOSTIC Cardinal 1 [id number] 791302 07132 959588 3 0 Multipack 5Fr Health catheter set ([id number]) SHEATH Prelude Merit 1 [id number] 451073 937894 023725 5 5Fr 0.035 Medical (AHP-2A-10-035) MULTIPACK JL Cardinal 1 197641 5 4.0 5Fr Health catheter MULTIPACK 3DRC Cardinal 1 747032 5 5Fr catheter Health MULTIPACK Cardinal 1 [id number] 5 Pigtail 5 Fr Health catheter EXOSEAL 5Fr Cardinal 1 EX500 326956 489059 940767 1 0 (EX500) Health Signature Audit [place] Stage Time Signature Unsigned Intra-Procedure 03/25/2018 Babita Padgett 2:20:20 PM RT(R) Signatures Monitor : Babita Padgett Signature : RT Date : Time : [place] [id number] [facility] [place] [address]
[~2018-03-25 11:52] MED LIST changes: +BAYER CHEWABLE81 MG PO; +COREG 3.1253.125 MG PO; +LISINOPRIL2.5 MG PO
[2018-03-25 12:33] VITALS: BP 133/77; Ht 177.8 cm; Wt 70.5 kg
[2018-03-25 12:36] LABS: BASOPHILS 0.4 % (0-2); EOSINOPHILS 6.7 % (0-7); HEMATOCRIT 40.6 % (42.0-54.0); HEMOGLOBIN 14.4 g/dL (13.5-17.5); IMMATURE GRANULOCYTES 0.2 % (0-5); LYMPHOCYTES 27.4 % (15-50); MCH 35.6 pg (26.0-34.0); MCHC 35.5 g/dL (31.0-37.0); MCV 100.2 fL (80.0-100.0); MEAN PLATELET VOLUME 9.5 fL (7.4-10.4); NEUTROPHILS 55.3 % (40-80); PLATELET COUNT 207 10x3/uL (130-400); RBC 4.05 10x6/uL (4.20-6.10); RDW 12.7 % (11.5-14.5); WBC 5.2 10x3/uL (4.8-10.8)
[2018-03-25 12:50] LABS: CALC OSMOLALITY 271 mosm/kg (275-300); CALCIUM 8.2 mg/dL (8.5-10.1); CARBON DIOXIDE 22.7 mmol/L (21.0-32.0); CHLORIDE - SERUM 103 mmol/L (98-107); GLUCOSE 94 mg/dL (74-106); SODIUM 135 mmol/L (136-145); UREA NITROGEN 19 mg/dL (7-18); eGFR NON AFRICAN AMERICAN 84 mL/min (90-120)
[2018-03-25 12:51] LABS: POTASSIUM - SERUM 5.2 mmol/L (3.5-5.1)
== END 2018-03-25 16:40 | disposition home or self-care (01) ==
LOC: D.CATH 11:52
PROVIDERS: Internal Medicine Cardiovascular Disease
DX: I42.9 Cardiomyopathy, unspecified (principal)

== ENCOUNTER 2018-08-08 16:59 | Emergency (ER) | payer MEDICAID ==
[~2018-08-08] VITALS: Ht 177.8 cm; Wt 70.5 kg
[2018-08-08 17:39] VITALS: BP 117/70; Ht 177.8 cm; Wt 70.5 kg
[2018-08-08] MEDS ORDERED: TAMIFLU75 MG PO (18:56)
[2018-08-08] MEDS ORDERED: PHENERGAN DM SYR5 ML PO (18:56)
== END 2018-08-08 20:16 | disposition home or self-care (01) ==
LOC: D.ER 16:59
DX: J11.1 Influenza due to unidentified influenza virus with other respiratory manifestations (principal); M79.18 Myalgia, other site; R05 Cough

== ENCOUNTER 2020-07-29 06:17 | Inpatient (IN) | payer MEDICAID ==
[~2020-07-29] VITALS: Ht 152.4 cm; Wt 70.9 kg
[~2020-07-29 06:17] MED LIST changes: +PHENERGAN DM SYR5 ML PO; +TAMIFLU75 MG PO
[2020-07-29 06:40] LABS: BASOPHILS 0.2 % (0-2); IMMATURE GRANULOCYTES 0.2 % (0-5); LYMPHOCYTE ABS# 0.86 10x3/uL (1.32-3.57); MCH 32.6 pg (26.0-34.0); MCHC 31.8 g/dL (31.0-37.0); MCV 102.6 fL (80.0-100.0); MONOCYTES 9.1 % (2-11); NEUTROPHILS 67.5 % (40-80); RBC 4.29 10x6/uL (4.20-6.10); RDW 14.6 % (11.5-14.5); WBC 4.3 10x3/uL (4.8-10.8)
[2020-07-29 06:43] LABS: PLATELET COUNT 256 10x3/uL (130-400)
[2020-07-29 07:06] LABS: ANION GAP 8.3 mmol/L (8-16); CREATININE - SERUM 1.3 mg/dL (0.6-1.3); POTASSIUM - SERUM 4.3 mmol/L (3.5-5.1)
[2020-07-29 07:19] LABS: BILIRUBIN - TOTAL 0.38 mg/dL (0.2-1.3); C-REACTIVE PROTEIN 0.3 mg/dL (0.0-0.9); MAGNESIUM - SERUM 2.1 mg/dL (1.8-2.4); PROTEIN - SERUM 6.3 g/dL (6.4-8.2); TROPONIN-I 0.032 ng/mL (0.000-0.060)
[2020-07-29 07:25] LABS: APTT 31.1 SECONDS (22.8-39.4)
[2020-07-29 07:26] LABS: D-DIMER-QUANTITATIVE 0.33 ug/mLFEU (0.20-0.54)
[2020-07-29 07:28] LABS: INR 0.98 (0.85-1.17)
--- NOTE | 2020-07-29 07:40 | NUR ---
CARDIOLOGY PARALEGAL SPECIALIST NOTIFIED OF CONSULT BY WILEY CARBAJAL WITH MESSAGEING SYSTEM.
--- NOTE | 2020-07-29 09:55 | NUR ---
PATIENT ARRIVED TO ROOM VIA WHEELCHAIR. ALERT AND ORIENTED X4. AMBULATORY. CALL LIGHT IN REACH.
[2020-07-29 10:02] VITALS: BP 116/72
[2020-07-29 14:21] VITALS: Ht 152.4 cm; Wt 70.9 kg
[2020-07-29 16:36] VITALS: BP 104/65
[2020-07-29 20:02] VITALS: BP 105/67
[2020-07-30] VITALS (7 sets, daily range): BP systolic 93–128; BP diastolic 48–75
[2020-07-30 07:02] LABS: BASOPHILS 0.3 % (0-2); EOSINOPHILS 3.1 % (0-7); HEMOGLOBIN 14.2 g/dL (13.5-17.5); IMMATURE GRANULOCYTES 0.3 % (0-5); LYMPHOCYTE ABS# 0.86 10x3/uL (1.32-3.57); LYMPHOCYTES 26.6 % (15-50); MCH 32.9 pg (26.0-34.0); MEAN PLATELET VOLUME 9.1 fL (7.4-10.4); MONOCYTES 13.3 % (2-11); NEUTROPHIL ABS# 1.82 10x3/uL (1.78-5.38); NEUTROPHILS 56.4 % (40-80); PLATELET COUNT 238 10x3/uL (130-400); RBC 4.32 10x6/uL (4.20-6.10); RDW 14.3 % (11.5-14.5)
--- NOTE | 2020-07-30 07:03 | NUR ---
I have reviewed this patient and I concur with the Shift Assessment completed by the Licensed Practical Nurse today this shift.
[2020-07-30 07:04] LABS: MCV 99.5 fL (80.0-100.0); WBC 3.2 10x3/uL (4.8-10.8)
--- NOTE | 2020-07-30 07:15 | NUR ---
RECEIVE BEDSIDE SHIFT REPORT. SITTING UP IN BED. ASKING FOR COFFEE. WILL GET. DENIES ANY OTHER NEEDS AT THIS TIME. WILL CONTINUE POC AND SAFETY PRECAUTIONS. CALL LIGHT IN REACH. ON TELEMETRY.
[2020-07-30 07:26] LABS: ALBUMIN 2.8 g/dL (3.4-5.0); ANION GAP 8.4 mmol/L (8-16); BILIRUBIN - TOTAL 0.52 mg/dL (0.2-1.3); CALCIUM 7.9 mg/dL (8.5-10.1); CARBON DIOXIDE 28.7 mmol/L (21.0-32.0); CREATININE - SERUM 1.3 mg/dL (0.6-1.3); MAGNESIUM - SERUM 1.9 mg/dL (1.8-2.4); PHOSPHOROUS 3.9 mg/dL (2.5-4.9); POTASSIUM - SERUM 4.1 mmol/L (3.5-5.1); PROTEIN - SERUM 6.1 g/dL (6.4-8.2)
--- NOTE | 2020-07-30 19:05 | NUR ---
REPORT RECEIVED, PT CARE ASSUMED. PT SITTING UP IN BED, AAOX4, WATCHING TV AND VISITING WITH FAMILY MEMBER AT BEDSIDE. DENIES ANY NEEDS AT THIS TIME. BED IN LOWEST, SRX1, CL WITHIN REACH. CPOC.
--- NOTE | 2020-07-30 19:45 | NUR ---
PM MEDS ADMINISTERED, ORDERED. 425 ML DARK YELLOW URINE EMPTIED FROM URINAL. DENIES ANY OTHER NEEDS AT THIS TIME. BED IN LOWEST, SRX1, CL AND URINAL WITHIN REACH. FAMILY MEMBER AT BEDSIDE. CPOC.
[2020-07-31] VITALS: BP 103/57
[2020-07-31 04:00] VITALS: BP 106/60
--- NOTE | 2020-07-31 04:24 | NUR ---
15 BEATS OF V-TACH, PER SAFE AND VAULT SERVICE MECHANIC. PT ASYMPTOMATIC, SITTING UP IN BED, DENIES CP. SECURITY AMBASSADOR IN ROOM FOR AM LABS. CPOC.
[2020-07-31 05:55] LABS: HEMATOCRIT 42.9 % (42.0-54.0); HEMOGLOBIN 14.2 g/dL (13.5-17.5); LYMPHOCYTE ABS# 0.83 10x3/uL (1.32-3.57); MCH 32.9 pg (26.0-34.0); MCHC 33.1 g/dL (31.0-37.0); MCV 99.3 fL (80.0-100.0); NEUTROPHIL ABS# 1.05 10x3/uL (1.78-5.38); PLATELET COUNT 251 10x3/uL (130-400); RBC 4.32 10x6/uL (4.20-6.10); RDW 13.9 % (11.5-14.5); WBC 2.4 10x3/uL (4.8-10.8)
[2020-07-31 06:34] LABS: ALBUMIN 2.9 g/dL (3.4-5.0); ANION GAP 11.6 mmol/L (8-16); BILIRUBIN - TOTAL 0.28 mg/dL (0.2-1.3); CALCIUM 8.1 mg/dL (8.5-10.1); CARBON DIOXIDE 28.1 mmol/L (21.0-32.0); CREATININE - SERUM 1.4 mg/dL (0.6-1.3); POTASSIUM - SERUM 3.7 mmol/L (3.5-5.1); PROTEIN - SERUM 6.1 g/dL (6.4-8.2)
[2020-07-31 07:00] VITALS: BP 106/65
[2020-07-31 07:27] LABS: EOSINOPHILS 8 % (0-7); LYMPHOCYTES 42 % (15-50); MONOCYTES 4 % (2-11); NEUTROPHILS 46 % (40-80); PLATELET ESTIMATE NORMAL
--- NOTE | 2020-07-31 09:32 | NUR ---
PT AWAKE AND ORIENTED, SITTING ON SIDE OF BED EATING BREAKFAST. TOOK ALL MEDICAITONS WITHOUT COMPLICATIONS. C/O PAIN THAT THE PAIN MEDICATION ISN'T HELPING. CL IN REACH, SRX1
[2020-07-31 15:55] VITALS: BP 100/61
--- NOTE | 2020-07-31 18:13 | NUR ---
PT BEGAN VOMITING, ADMINISTERED ZOFRAN PRN. AT BEDSIDE. CL IN REACH, SRX2.
--- NOTE | 2020-07-31 19:54 | NUR ---
PT REQUESTED PRN DILAUDID RATES PAIN 01/04. RLQ PAIN, REPORTS THIS IS NOT NEW
--- NOTE | 2020-07-31 20:10 | NUR ---
PT REQUESTED MORE JELLO OR ICE CREAM, WANTS APPLE JUICE. 2 CUPS OF JELLO PROVIDED ALONG WITH CRANBERRY JUICE
[2020-07-31 20:50] VITALS: BP 96/59
--- NOTE | 2020-08-01 00:10 | NUR ---
PT NOTED TO BE LYING IN BED APPEARS ASLEEP BREATHING EVENLY WILL CONTINUE TO MONITOR
[2020-08-01 01:21] VITALS: BP 96/62
[2020-08-01 05:17] VITALS: BP 112/64
[2020-08-01 06:32] LABS: BASOPHILS 0.3 % (0-2); EOSINOPHILS 4.5 % (0-7); HEMATOCRIT 45.8 % (42.0-54.0); HEMOGLOBIN 14.9 g/dL (13.5-17.5); IMMATURE GRANULOCYTES 0.3 % (0-5); LYMPHOCYTE ABS# 0.81 10x3/uL (1.32-3.57); LYMPHOCYTES 27.8 % (15-50); MCH 32.9 pg (26.0-34.0); MCHC 32.5 g/dL (31.0-37.0); MCV 101.1 fL (80.0-100.0); MONOCYTES 13.4 % (2-11); NEUTROPHIL ABS# 1.56 10x3/uL (1.78-5.38); NEUTROPHILS 53.7 % (40-80); PLATELET COUNT 273 10x3/uL (130-400); RBC 4.53 10x6/uL (4.20-6.10); RDW 13.9 % (11.5-14.5); WBC 2.9 10x3/uL (4.8-10.8)
[2020-08-01 06:54] LABS: ALBUMIN 3.2 g/dL (3.4-5.0); ANION GAP 8.9 mmol/L (8-16); BILIRUBIN - TOTAL 0.33 mg/dL (0.2-1.3); CALCIUM 8.5 mg/dL (8.5-10.1); CARBON DIOXIDE 32.1 mmol/L (21.0-32.0); CREATININE - SERUM 1.4 mg/dL (0.6-1.3); MAGNESIUM - SERUM 2.1 mg/dL (1.8-2.4); PHOSPHOROUS 3.2 mg/dL (2.5-4.9); PROTEIN - SERUM 6.8 g/dL (6.4-8.2)
[2020-08-01 07:00] VITALS: BP 101/62
--- NOTE | 2020-08-01 10:21 | NUR ---
PT ALERT AND OIRENTED, SITTING IN RECLINER BESIDE BED. IV INFILTRATED, REPLACED WITH A 20G LFA. PT EXPRESSES EXTREME ANXIETY WITH NEEDLES. TOOK ALL MEDICATIONS WITHOUT COMPLICATIONS, NO COMPLAINTS OR CONCERNS AT THIS TIME
--- NOTE | 2020-08-01 11:04 | NUR ---
SPOKE WITH DR. SILVESTRE IN CARDIOLOGY ABOUT DOBOUTINE DRIP. HE STATED TO CUT DRIP TO 5 FOR 2 HOURS AND THEN D/C. DRIP ADJUSTED.
--- NOTE | 2020-08-01 16:49 | NUR ---
PT ALERT AND ORIENTED LYING IN BED WATCHING T/V. NO COMPLAINTS OR CONCERNS AT THIS TIME. CL IN REACH, SRX2.
[2020-08-01 17:13] VITALS: BP 110/72
--- NOTE | 2020-08-01 19:53 | NUR ---
pt resting in bed requesting ice cream, no ice cream available jello provided. no distress noted will continue to monitor
[2020-08-01 20:00] VITALS: BP 102/66
[2020-08-02 06:17] LABS: BASOPHILS 0.3 % (0-2); EOSINOPHILS 5.7 % (0-7); HEMATOCRIT 47.6 % (42.0-54.0); HEMOGLOBIN 15.5 g/dL (13.5-17.5); IMMATURE GRANULOCYTES 0.3 % (0-5); LYMPHOCYTES 29.9 % (15-50); MCH 32.9 pg (26.0-34.0); MCHC 32.6 g/dL (31.0-37.0); MCV 101.1 fL (80.0-100.0); MONOCYTES 13.4 % (2-11); NEUTROPHIL ABS# 1.69 10x3/uL (1.78-5.38); NEUTROPHILS 50.4 % (40-80); PLATELET COUNT 286 10x3/uL (130-400); RBC 4.71 10x6/uL (4.20-6.10); RDW 13.8 % (11.5-14.5); WBC 3.4 10x3/uL (4.8-10.8)
[2020-08-02 06:22] LABS: ALBUMIN 3.3 g/dL (3.4-5.0); ANION GAP 8.2 mmol/L (8-16); BILIRUBIN - TOTAL 0.25 mg/dL (0.2-1.3); CARBON DIOXIDE 33.1 mmol/L (21.0-32.0); CREATININE - SERUM 1.3 mg/dL (0.6-1.3); MAGNESIUM - SERUM 2.4 mg/dL (1.8-2.4); PHOSPHOROUS 3.6 mg/dL (2.5-4.9); POTASSIUM - SERUM 4.3 mmol/L (3.5-5.1); PROTEIN - SERUM 7.1 g/dL (6.4-8.2)
--- NOTE | 2020-08-02 07:00 | NUR ---
PATIENT IS SITTING UP IN HIS CHAIR THIS AM, PATIENT STATES HE IS REALLY HUNGRY AND HAS BEEN FOR A LONG TIME DESPITE GETTING DOUBLE PORTIONS. PLAN OF CARE REVIEWED AND ASSESSMENT HAS BEEN COMPLETED. NAD NOTED. CALL LIGHT IN REACH
[2020-08-02 09:00] VITALS: BP 110/59
[2020-08-02] MEDS ORDERED: ASPIRIN81 MG PO (11:40)
[2020-08-02] MEDS ORDERED: COREG 3.1253.125 MG PO (11:40)
[2020-08-02] MEDS ORDERED: LISINOPRIL2.5 MG PO (11:40)
[2020-08-02] MEDS ORDERED: BUMEX2 MG PO (11:41)
[2020-08-02] MEDS ORDERED: K-TAB10 MEQ PO (11:41)
[2020-08-02] MEDS ORDERED: OMNICEF300 MG PO (11:43)
[2020-08-02] MEDS ORDERED: AZITHROMYCIN500 MG PO (11:43)
--- NOTE | 2020-08-04 00:34 | MORECARE ---
CASE MANAGEMENT DISCHARGE SUMMARY PATIENT: ADILIA LUCERO UNIT: [id number] ADM DATE: 07/29/20 AGE: 50 : [birth year] SEX: M ROOM/BED: D.2134 AUTHOR: TRES CRUZ PHYSICIAN: REFERRING PHYSICIAN: SYLWIA SNOWDEN MD DATE OF SERVICE: 08/04/20 Discharge Plan Patient Name: ADILIA LUCERO [facility] [facility] 1970 Planned Disposition: Home or Self Care Anticipated Discharge Date: Discharge Date: 08/02/2020 Expected LOS: Initial Reviewer: [email or web address] Initial Review Date: 07/29/2020 Generated: 08/04/20 1:33 am Patient Name: ADILIA LUCERO Page 84262 at 0034 All edits/amendments must be made on the electronic document DICTATION DATE: 08/04/2033 TRAINING AND DEVELOPMENT SPECIALIST: BRYAN 08/04/2033 RPT#: [id number] DC DATE:08/02/20 STATUS: DIS IN [facility] [address] [place] [address] END OF REPORT
--- NOTE | 2020-08-04 00:41 | MORECARE ---
CASE MANAGEMENT DISCHARGE SUMMARY PATIENT: ADILIA LUCERO UNIT: [id number] ADM DATE: 07/29/20 AGE: 50 : 66 SEX: M ROOM/BED: D.2134 AUTHOR: TRES CRUZ PHYSICIAN: REFERRING PHYSICIAN: SYLWIA SNOWDEN MD DATE OF SERVICE: 08/04/20 Discharge Plan Patient Name: ADILIA LUCERO [facility] [facility] 1970 Planned Disposition: Home or Self Care Anticipated Discharge Date: Discharge Date: 08/02/2020 Expected LOS: Initial Reviewer: [email or web address] Initial Review Date: 07/29/2020 Generated: 08/04/20 1:40 am DCPIA - Discharge Planning Initial Assessment Updated by [email or web address]: Linh Castelan on 08/04/20 12:36 am * Is the patient Alert and Oriented? Yes * How many steps to enter\exit or inside your home? * PCP [facility] * [facility] * Preadmission Environment Home with Family * ADLs Independent * Equipment None * List name and contact numbers for known caregivers / representatives who currently or will assist patient after discharge: JUANA PRASAD SO- [phone] * Verbal permission to speak to the caregivers and representatives has been obtained from the patient. N/A * Additional services required to return to the preadmission environment? No * Can the patient safely return to the preadmission environment? Yes * Has this patient been hospitalized within the prior 30 days at any hospital? Yes Last DP export: 08/03/20 11:34 pm Patient Name: ADILIA LUCERO Page [phone] at 0041 All edits/amendments must be made on the electronic document DICTATION DATE: 08/04/2039 APN: BRYAN 08/04/2039 RPT#: [id number] DC DATE:08/02/20 STATUS: DIS IN [facility] [address] [place] [address] END OF REPORT
--- NOTE | 2020-08-04 00:53 | MORECARE ---
CASE MANAGEMENT DISCHARGE SUMMARY PATIENT: ADILIA LUCERO UNIT: [id number] ADM DATE: 07/29/20 AGE: 50 : 66 SEX: M ROOM/BED: D.9146 AUTHOR: TRES CRUZ PHYSICIAN: REFERRING PHYSICIAN: SYLIWA SNOWDEN MD DATE OF SERVICE: 08/04/20 Discharge Plan Patient Name: ADILIA LUCERO Facility: [facility]:[place] : 1970 Planned Disposition: Home or Self Care Anticipated Discharge Date: Discharge Date: 08/02/2020 Expected LOS: Initial Reviewer: [email or web address] Initial Review Date: 07/29/2020 Generated: 08/04/20 1:52 am Comments DCP- Discharge Planning Updated by [email or web address]: Linh Castelan on 08/03/20 11:[address] LATE ENTRY 08/02/20 Patient Name: ADILIA LUCERO Admission Status: ER Accout number: [id number] Admission Date: 07-29-2020 : 1970 Admission Diagnosis:SHORTNESS OF BREATH Attending: SYLWIA SNOWDEN Current LOS: 4 Anticipated DC Date: Planned Disposition: Home or Self Care Primary Insurance: [place]ICAID [place] Discharge Planning Comments: CM spoke with patient regarding discharge planning after obtaining consent. Patient states that he lives in his truck with his . He denies any needs other than making sure he is able to get his discharge meds. He stated that he only hasa few slots. CM called pharmacy and he only has 3 med slots a month. CM spoke pharmacy and got most expensive meds placed in slots and his other medications should be around 14.00. Patient stated that he could afford to get the other meds, CM explained to patient that his PCP can call Medicaid and extend his slots. CM attempted to call PCP office several times to get this done for patient prior to discharge. CM will continue to follow and assist as needed with discharge planning/ needs. Electronic Page Makeup System Operator: Linh Castelan DCPIA - Discharge Planning Initial Assessment Updated by [email or web address]: Linh Castelan on 08/04/20 12:36 am * Is the patient Alert and Oriented? Yes * How many steps to enter\exit or inside your home? * PCP [facility] * [facility] * Preadmission Environment Home with Family * ADLs Independent * Equipment None * List name and contact numbers for known caregivers / representatives who currently or will assist patient after discharge: JUANA PRASAD -SO- [phone] * Verbal permission to speak to the caregivers and representatives has been obtained from the patient. N/A * Additional services required to return to the preadmission environment? No * Can the patient safely return to the preadmission environment? Yes * Has this patient been hospitalized within the prior 30 days at any hospital? Yes Last DP export: 08/03/20 11:41 pm Patient Name: ADILIA LUCERO Page 22101 at 0053 All edits/amendments must be made on the electronic document DICTATION DATE: 08/04/2052 TIRE SETTER: BRYAN 08/04/2052 RPT#: [id number] DC DATE:08/02/20 STATUS: DIS IN [facility] [address] [place] [address] END OF REPORT
== END 2020-08-02 15:36 | disposition home or self-care (01) | DRG 291 ==
LOC: D.ER 06:17 → D.M2 06:51 → D.EDHOLD 06:51 → D.M2 08:43
PROVIDERS: Family Medicine; ADMIT Emergency Medicine; ATTEND Emergency Medicine
DX: I11.0 Hypertensive heart disease with heart failure (principal); J18.9 Pneumonia, unspecified organism; J44.0 Chronic obstructive pulmonary disease with (acute) lower respiratory infection; I42.9 Cardiomyopathy, unspecified; I50.9 Heart failure, unspecified; G89.29 Other chronic pain; M54.9 Dorsalgia, unspecified; K21.9 Gastro-esophageal reflux disease without esophagitis; L40.9 Psoriasis, unspecified